=== PATIENT | male | born 1955 | race Caucasian/White ===

== ENCOUNTER 2021-07-28 14:43 | Emergency (ER) | payer SELFPAY ==
--- NOTE | ~2021-07-28 | XR_ITS ---
EXAMINATION: XR CHEST CLINICAL INFORMATION: Fall COMPARISON: None TECHNIQUE: Frontal view of the chest was obtained. FINDINGS: The cardiac and mediastinal contours are normal. The lungs are clear. There is no pleural effusion or pneumothorax. There is an old right fifth rib fracture. There is curvature of the thoracic spine to the right and degenerative change. XR/XR chest 1V IMPRESSION: No evidence for acute disease in the chest.
--- NOTE | ~2021-07-28 | CT_ITS ---
EXAMINATION: CT HEAD WITHOUT CONTRAST CLINICAL INFORMATION: Fall with head strike COMPARISON: None TECHNIQUE: Contiguous axial imaging was performed from the skull base to vertex without intravenous administration of contrast. This CT examination was performed using dose optimization techniques as appropriate, variously including the following: *Automated exposure control *Adjustment of mA and/or kV according to patient size (this includes techniques or standardized protocols for targeted exams where dose is matched to indication/reason for exam; i.e. extremities or head) *Use of iterative reconstruction technique DLP: 1144 mGy-cm FINDINGS: There is no evidence of acute intracranial hemorrhage or territorial infarction. No abnormal mass effect or midline shift is seen. Pena to white matter differentiation is well preserved. No extra-axial fluid collections are identified. The ventricles are normal in size. There is no abnormal attenuation within the brain parenchyma. There is a right parietal/occipital scalp hematoma present. The mastoid air cells are aerated. There is opacification of left ethmoid sinuses and left maxillary sinus without definite blowout fracture of the orbital floor. A fracture of the medial wall of the left maxillary sinus is not excluded. CT/CT head/brain wo con IMPRESSION: No acute intracranial pathology. Scalp hematoma. Opacification of left ethmoid and maxillary sinuses without blowout fracture of the orbital wall identified. Question possible medial wall left maxillary sinus fracture versus chronic sinus disease.
--- NOTE | ~2021-07-28 | CT_ITS ---
EXAMINATION: CT ABDOMEN AND PELVIS WITH CONTRAST CLINICAL INFORMATION: Status post 6 foot fall with abdominal pain, trauma COMPARISON: None TECHNIQUE: Multidetector volumetric images were obtained from the superior aspect of the liver through the pubic symphysis following administration 85 mL of Omnipaque 350 intravenous contrast. Sagittal and coronal reformatted images were obtained on the technologist's workstation. Oral contrast: No This CT examination was performed using dose optimization techniques as appropriate, variously including the following: *Automated exposure control *Adjustment of mA and/or kV according to patient size (this includes techniques or standardized protocols for targeted exams where dose is matched to indication/reason for exam; i.e. extremities or head) *Use of iterative reconstruction technique DLP: 864 mGy-cm FINDINGS: LUNG BASES: The visualized lung bases are unremarkable. LIVER, GALLBLADDER, AND BILIARY TREE: The liver is normal in size, shape, and attenuation. No focal hepatic lesion or biliary ductal dilatation is present. The gallbladder is unremarkable with no evidence of radiopaque gallstones, gallbladder wall thickening, or obvious pericholecystic inflammatory changes. PANCREAS: Unremarkable. SPLEEN: Unremarkable. ADRENAL GLANDS: Unremarkable. 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 There is mild right hydroureteronephrosis. Multiple simple right renal cysts are seen the largest in the right renal pelvis measuring 4.9 cm. There is an ectopically positioned left pelvic kidney with the partially duplicated collecting system. There is mild hydronephrosis of the upper and lower pulmonary disease. In addition are multiple simple renal cysts. BLADDER: Unremarkable. GASTROINTESTINAL TRACT: Stomach and small bowel are nondilated. Normal appendix. Diffuse colonic diverticulosis without evidence of colitis or diverticulitis. ABDOMINAL WALL: Fat-containing left inguinal hernia. Small fat-containing umbilical hernia. LYMPH NODES: No lymphadenopathy. VASCULAR: Normal caliber abdominal aorta. PELVIC VISCERA: Unremarkable. OSSEOUS STRUCTURES: Multilevel degenerative changes. CT/CT abdomen pelvis w con IMPRESSION: No acute traumatic abnormality in the abdomen or pelvis. 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 There is mild hydroureteronephrosis bilaterally. This is of uncertain etiology. There are multiple simple cysts in both kidneys, none of which require further imaging follow-up.
--- NOTE | ~2021-07-28 | CT_ITS ---
EXAMINATION: CT CERVICAL SPINE WITHOUT CONTRAST CLINICAL INFORMATION: Trauma COMPARISON: None TECHNIQUE: Axial images through the cervical spine without contrast. Sagittal and coronal reconstructions on the technologist workstation were performed. This CT examination was performed using dose optimization techniques as appropriate, variously including the following: *Automated exposure control *Adjustment of mA and/or kV according to patient size (this includes techniques or standardized protocols for targeted exams where dose is matched to indication/reason for exam; i.e. extremities or head) *Use of iterative reconstruction technique DLP: 813 mGy-cm FINDINGS: Exam is limited due to motion artifact. There is slight head tilt to the left and curvature of the proximal cervical spine to the right. Bone alignment is otherwise normal. There is multilevel degenerative spondylosis and degenerative disc disease from C3-C4 to C7-T1. There are degenerative changes at the C1 dens articulation. No fracture or dislocation is seen. Prevertebral soft tissues are normal. There is shotty cervical lymphadenopathy. There is an azygos lobe. CT/CT cervical spine wo con IMPRESSION: Limited exam due to motion. Multilevel degenerative changes. No fracture or dislocation seen. Fleischner guidelines were followed.
--- NOTE | ~2021-07-28 | CT_ITS ---
EXAMINATION: CT CHEST WITHOUT CONTRAST CLINICAL INFORMATION: Trauma COMPARISON: Previous chest x-ray from earlier the same day TECHNIQUE: Multidetector volumetric CT imaging of the chest was done. Axial MIP volume rendering provided. Sagittal and coronal reformatted images were obtained. This CT examination was performed using dose optimization techniques as appropriate, variously including the following: *Automated exposure control *Adjustment of mA and/or kV according to patient size (this includes techniques or standardized protocols for targeted exams where dose is matched to indication/reason for exam; i.e. extremities or head) *Use of iterative reconstruction technique DLP: 539 mGy-cm FINDINGS: LUNGS: There is mild right apical pleural thickening.. There is an azygos lobe. MEDIASTINUM: There is mild coronary artery calcification. The mediastinum is otherwise normal. PLEURA: There is no pleural effusion. There is no pneumothorax. There is pleural thickening at the right lung apex and posterior to the right upper lobe near the azygos fissure. This is low in attenuation suggestive of fat. AXILLA: There are no enlarged axillary lymph nodes. There is a 1.2 cm low-attenuation lesion just deep to the skin and the left chest wall lateral to the nipple. This is separate from breast tissue and probably represents a sebaceous cyst or epidermoid. UPPER ABDOMEN: Unremarkable. OSSEOUS STRUCTURES: There are old bilateral rib fractures. No acute fracture is seen. There are degenerative changes of the spine. There are degenerative changes of the shoulder joints. CT/CT chest wo con IMPRESSION: No acute findings in the chest. Fleischner guidelines were followed.
[2021-07-28 14:59] VITALS: BP 133/92; PULSE 111; RESP 24; TEMP 36.1; O2SAT 97; BMI 33.0
--- NOTE | 2021-07-28 15:12 | ECG_ITS ---
Test Reason : cp Blood Pressure : / mmHG Vent. Rate : 106 BPM Atrial Rate : 106 BPM P-R Int : 162 ms QRS Dur : 078 ms QT Int : 368 ms P-R-T Axes : 031 -25 050 degrees QTc Int : 488 ms Sinus tachycardia Inferior infarct , age undetermined Abnormal ECG No previous ECGs available Referred By: Generic ED Physician Electronically Signed By:Kai Reina
--- NOTE | 2021-07-28 15:39 | ED.FALL ---
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 Fall was unwitnessed but his friend heard the fall and ran into the room. He found the patient lying on his back, with a bleeding head wound, staring off into space and not responsive for about 3 or 4 minutes. He was ?breathing funny.? The friend denies any seizure activity. a few moments he was responsive and able to get up slowly. He reports right-sided back pain, right upper rib pain. He has no known medical problems but has not been to a doctor since 1978. He is not on any medications including anticoagulation. Patient reports he does not remember any events surrounding the fall. He does not recall being lightheaded or dizzy prior to the event. He does admit to drinking ?a little bit? of alcohol today. He states he drinks about half a pt of mary per day. On arrival to the ER patient is tachycardic and tachypneic. He is oriented x3. complaint: fall Onset (ago): minute(s) Fall from: standing Fall witnessed: no Place fall occurred: work Loss of consciousness: unsure Prolonged down time: no Location of injury: head and back Severity: moderate Severity scale (1-10): 6 Quality: aching Associated symptoms (after fall): headache Related Data Allergies Allergy/AdvReac Type Severity Reaction Status Date / Time amoxicillin Allergy Unknown Verified 07/28/21 15:04 Review of Systems Review of Systems: Constitutional: No Fever, No Chills ENT/Mouth: No sore throat, No Rhinorrhea, No Swallowing Difficulty Eyes: No Eye Pain, No Swelling, No Redness Cardiovascular: + Chest Pain, + SOB, No Orthopnea, No Edema Respiratory: No Cough, No Sputum, No Wheezing, No dyspnea Gastrointestinal: No Nausea, No Vomiting, No Diarrhea, No abdominal Pain, No Hematochezia, No Melena Genitourinary: No Dysuria, No Urinary Frequency, No Hematuria Musculoskeletal: + joint pain, + Myalgias Skin: No Skin Lesions, No rash Neuro: No Weakness, No Numbness, No Dizziness, + Headache Psych: No Anxiety/Panic, No Depression Heme/Lymph: No Bruising, No Lymphadenopathy Endocrine: No Polyuria, No Polydipsia REPLACED BY [facility] Past Medical History Medical History (Updated 07/28/21 @ 19:44 by RAYMOND Bailey) No known health problems Social History Social History Alcohol intake: current Alcohol intake frequency: a few times a week Alcohol type: hard liquor Patient Tobacco Use Status: Current everyday Tobacco user Use of substances other than those prescribed or required for medical reasons: No Advance Directives: No Advance Directives Information Provided: No Physical Exam Vital Signs: Vital Signs: Last Vital Signs Temp 98.2 F 07/28/21 17: Pulse 95 07/28/21 17:22 Resp 12 07/28/21 17:22 BP 121/84 07/28/21 17: Pulse Ox 97 07/28/21 17:22 BMI result Body Mass Index 33.0 Appearance: Alert, male with bleeding posterior head wound, Oriented X3. No acute distress. Appears older than stated age. Head: large palpable occipital hematoma without active bleeding. dried blood with matted hair, unable to visulize deep laceration. no palpable skull fracture. Eyes: Pupils equal, round and reactive to light. EOMI, no nystagmus ENT: Pharynx normal. No dental trauma, poor dentition Neck: Normal inspection. Neck supple. No mildine tenderness - c-collar placed. CVS: Tachycardic, regular rhythm, heart rate 100s. Pulses normal. Respiratory: Mild respiratory distress. Breath sounds coarse throughout without anywheezes or rhonchi Abdomen: Obese, Softly distened and RUQ tenderness. +BS x4. no flank ecchymosis Skin: Skin warm and dry. Normal skin color. Normal skin turgor. No rashes. Extremities: No lower extremity edema. Normal inspection and normal ROM x4 Neuro: Oriented X 3. No motor deficit. No sensory deficit. Nonfocal. Normal speech. Strength equal and symmetrical throughout. Course Course Course Narrative: 66-year-old male with a history of daily alcohol abuse, active smoker, with no known medical problems was not been to a doctor in 45 years who presents to the ER after he fell 6 ft onto a wooden scaffold. He was unresponsive for 3-4 minutes without any witnessed seizure activity. He has a head laceration with concern for possible pneumothorax. Will also need to rule out traumatic injuries in the abdomen. Will get escobar scans, type and screen, lab workup. May need to be transferred if traumatic injuries are significant. He is alert and oriented, placed on 100% non-rebreather empirically. Blood pressure stable 140 systolic. Reevaluation(s) Reevaluation #1: CT head, cervical spine and chest did not show any acute traumatic injuries. Wound on his scalp was irrigated and cleaned extensively and then harshil were used to close the irregular shaped wound. Compression help the back with the underlying hematoma and pressure was held, pressure dressing applied. Patient remains alert and oriented. He states he still has some mild pain in his right back. CT of the abdomen with contrast is still pending. Reevaluation #2: CT abd/pelvis without any acute traumatic injuries. He remains AAO x3. ETOH level 290s. Declining need for detox. He has no vomiting, lethargy or confusion. He has been observed for 5 hours in the ER and is stable for discharge home. His will care for him and monitor him closely at home. Return precautions were discussed. Procedures FAST Exam FAST Exam 1: Fluid in Splenorenal Junction: No Fluid around bladder, Transverse view: No Fluid around bladder, Sagittal view: No Fluid in Pericardial Sac: No Gross Wall Motion Abnormality: No Additional Comments: poor lung sliding on the right - performed with Dr. Edouard Laceration Laceration 1: Site: scalp Description: irregular Depth: simple, single layer Pre-repair: wound explored and irrigated extensively Skin layer closed with: other (7 Harshil) MDM - Fall Medical Records Attestation: I reviewed the patient's medical records. Lab Data Attestation: I reviewed the patient's lab results. Result diagrams: 07/28/21 15:50 07/28/21 15:50 Labs: Lab Results 07/28/21 07/28/21 07/28/21 Range/Units 15:50 15:50 15:50 WBC 10.7 (4.8-10.8) X10*3/uL RBC 4.84 (4.60-5.80) X10*6/uL Hgb 15.7 (14.0-18.0) g/dl Hct 44.4 (42.0-52.0) % MCV 91.7 (80.0-98.0) fL MCH 32.4 (27.0-33.0) pg MCHC 35.4 (31.0-36.0) g/dl RDW 13.0 (11.0-16.0) % Plt Count 208 (160-400) X10*3/uL MPV 8.6 L (9.4-12.4) fL Immature Gran % (Auto) 2.1 H (0.0-0.4) % Neut % (Auto) 77.1 H (45-73) % Lymph % (Auto) 13.0 L (20-40) % [place] % (Auto) 6.2 (2-11) % Eos % (Auto) 1.1 (0-4) % Baso % (Auto) 0.5 (0-2) % Lymph # (Auto) 1.4 (1.2-4.9) X10*3/uL [place] # (Auto) 0.7 (0.1-1.2) X10*3/uL Eos # (Auto) 0.1 (0.0-0.4) X10*3/uL Baso # (Auto) 0.1 (0.0-0.2) X10*3/uL Abs Immat Gran (auto) 0.22 H (0.00-0.03) X10*3/uL Absolute Neuts (auto) 8.3 (2.0-8.3) x10*3/uL Absolute Nucleated RBC 0.000 (0.0-0.012) X10*3/uL Nucleated RBC % (auto) 0.0 (0.0-0.2) /100WBC PT (9.9-13.0) SEC INR (0.9-1.1) APTT (24.1-38.0) SEC Sodium 135 (135-145) mmol/L Potassium 3.3 (3.3-5.1) mmol/L Chloride 99 (96-108) mmol/L Carbon Dioxide 26 (22-29) mmol/L Anion Gap 13 (12-20) BUN 9 (9-16) mg/dL Creatinine 0.90 (0.5-1.4) mg/dL Estim Creat Clear Calc 100.3 Estimated GFR > 60 Random Glucose 124 H (60-115) mg/dL Lactic Acid (0.5-2.0) mmol/L Lactic Acid F/U @ 2Hr (0.5-2.0) mmol/L Calcium 9.0 (8.4-10.2) mg/dL Magnesium 1.9 (1.6-2.6) mg/dL Total Bilirubin 0.5 (0.0-1.0) mg/dL Direct Bilirubin 0.2 (0.0-0.5) mg/dL AST 58 H (5-37) U/L ALT 33 (0-40) U/L Alkaline Phosphatase 76 (39-117) U/L Troponin I High Sens 4.4 (<3.5-35.0) ng/L Total Protein 6.9 (6.5-8.0) g/dL Albumin 4.0 (3.5-5.0) g/dL Ethyl Alcohol mg/dL COVID-19 ([facility]) (Negative) COVID-19 Clin Com Blood Type Antibody Screen 07/28/21 07/28/21 07/28/21 Range/Units 15:50 15:50 15:50 WBC (4.8-10.8) X10*3/uL RBC (4.60-5.80) X10*6/uL Hgb (14.0-18.0) g/dl Hct (42.0-52.0) % MCV (80.0-98.0) fL MCH (27.0-33.0) pg MCHC (31.0-36.0) g/dl RDW (11.0-16.0) % Plt Count (160-400) X10*3/uL MPV (9.4-12.4) fL Immature Gran % (Auto) (0.0-0.4) % Neut % (Auto) (45-73) % Lymph % (Auto) (20-40) % [place] % (Auto) (2-11) % Eos % (Auto) (0-4) % Baso % (Auto) (0-2) % Lymph # (Auto) (1.2-4.9) X10*3/uL [place] # (Auto) (0.1-1.2) X10*3/uL Eos # (Auto) (0.0-0.4) X10*3/uL Baso # (Auto) (0.0-0.2) X10*3/uL Abs Immat Gran (auto) (0.00-0.03) X10*3/uL Absolute Neuts (auto) (2.0-8.3) x10*3/uL Absolute Nucleated RBC (0.0-0.012) X10*3/uL Nucleated RBC % (auto) (0.0-0.2) /100WBC PT 11.0 (9.9-13.0) SEC INR 1.0 (0.9-1.1) APTT 32.7 (24.1-38.0) SEC Sodium (135-145) mmol/L Potassium (3.3-5.1) mmol/L Chloride (96-108) mmol/L Carbon Dioxide (22-29) mmol/L Anion Gap (12-20) BUN (9-16) mg/dL Creatinine (0.5-1.4) mg/dL Estim Creat Clear Calc Estimated GFR Random Glucose (60-115) mg/dL Lactic Acid 3.1 H* (0.5-2.0) mmol/L Lactic Acid F/U @ 2Hr (0.5-2.0) mmol/L Calcium (8.4-10.2) mg/dL Magnesium (1.6-2.6) mg/dL Total Bilirubin (0.0-1.0) mg/dL Direct Bilirubin (0.0-0.5) mg/dL AST (5-37) U/L ALT (0-40) U/L Alkaline Phosphatase (39-117) U/L Troponin I High Sens (<3.5-35.0) ng/L Total Protein (6.5-8.0) g/dL Albumin (3.5-5.0) g/dL Ethyl Alcohol mg/dL COVID-19 ([facility]) Negative (Negative) COVID-19 Clin Com See Note Blood Type Antibody Screen 07/28/21 07/28/21 07/28/21 Range/Units 15:50 18:32 18:32 WBC (4.8-10.8) X10*3/uL RBC (4.60-5.80) X10*6/uL Hgb (14.0-18.0) g/dl Hct (42.0-52.0) % MCV (80.0-98.0) fL MCH (27.0-33.0) pg MCHC (31.0-36.0) g/dl RDW (11.0-16.0) % Plt Count (160-400) X10*3/uL MPV (9.4-12.4) fL Immature Gran % (Auto) (0.0-0.4) % Neut % (Auto) (45-73) % Lymph % (Auto) (20-40) % [place] % (Auto) (2-11) % Eos % (Auto) (0-4) % Baso % (Auto) (0-2) % Lymph # (Auto) (1.2-4.9) X10*3/uL [place] # (Auto) (0.1-1.2) X10*3/uL Eos # (Auto) (0.0-0.4) X10*3/uL Baso # (Auto) (0.0-0.2) X10*3/uL Abs Immat Gran (auto) (0.00-0.03) X10*3/uL Absolute Neuts (auto) (2.0-8.3) x10*3/uL Absolute Nucleated RBC (0.0-0.012) X10*3/uL Nucleated RBC % (auto) (0.0-0.2) /100WBC PT (9.9-13.0) SEC INR (0.9-1.1) APTT (24.1-38.0) SEC Sodium (135-145) mmol/L Potassium (3.3-5.1) mmol/L Chloride (96-108) mmol/L Carbon Dioxide (22-29) mmol/L Anion Gap (12-20) BUN (9-16) mg/dL Creatinine (0.5-1.4) mg/dL Estim Creat Clear Calc Estimated GFR Random Glucose (60-115) mg/dL Lactic Acid (0.5-2.0) mmol/L Lactic Acid F/U @ 2Hr 2.3 H* (0.5-2.0) mmol/L Calcium (8.4-10.2) mg/dL Magnesium (1.6-2.6) mg/dL Total Bilirubin (0.0-1.0) mg/dL Direct Bilirubin (0.0-0.5) mg/dL AST (5-37) U/L ALT (0-40) U/L Alkaline Phosphatase (39-117) U/L Troponin I High Sens (<3.5-35.0) ng/L Total Protein (6.5-8.0) g/dL Albumin (3.5-5.0) g/dL Ethyl Alcohol 294 mg/dL COVID-19 ([facility]) (Negative) COVID-19 Clin Com Blood Type A Positive Antibody Screen NEGATIVE ECG Data Attestation: I personally reviewed and interpreted this ECG as follows: ECG interpretation date: 07/28/21 Interpretation: Sinus tachycardia, heart rate 106 beats per minute, QTC slightly warm 180 AMS, normal TN interval, no ST segment elevations or depressions. Critical Care Time Critical Care Time Critical Care Time: Yes Total Critical Care Time: 46 Attestation: I have personally provided critical care time exclusive of time spent on separately billable procedures. Time includes review of lab data, radiology results, discussion with consultants, and monitoring for potential decompensation. Intervention performed as documented. Discharge Plan Discharge Clinical Impression: Laceration of head, Accidental fall from scaffolding, Alcohol intoxication, Head injury Patient Disposition: Home, Self-Care Instructions: Head Injury (ED), Abuse of Alcohol (DC), Head Laceration (ED) Additional Instructions: Your CT scans did not show traumatic injuries. 7 harshil were used to close your head wound. These will need to be removed in 10 days. See you doctor for this or come back to the ER and we will remove them. Do not get wet for 24 hours, after that you can briefly wash with soap and water then pat dry. Use bacitracin 2x per day. Keep wound clean. Take Motrin and/or Tylenol as needed for aches and pains. Recommend detox from alcohol. If you develop signs of infection including increased pain, swelling, redness or drainage of pus come back to the ER for further evaluation.
[2021-07-28 15:57] LABS: MANUAL DIFF FLAG NO
[2021-07-28 15:58] LABS: Basophils Absolute Auto 0.1 X10*3/uL (0.0-0.2); Basophils Percent Auto 0.5 % (0-2); Eosinophils Absolute Auto 0.1 X10*3/uL (0.0-0.4); Eosinophils Percent Auto 1.1 % (0-4); Hematocrit 44.4 % (42.0-52.0); Hemoglobin 15.7 g/dl (14.0-18.0); Imm Gran Abs Auto 0.22 X10*3/uL (0.00-0.03); Imm Gran Pct Auto 2.1 % (0.0-0.4); Lymphocytes Absolute Auto 1.4 X10*3/uL (1.2-4.9); Mean Corpuscular HGB Conc 35.4 g/dl (31.0-36.0); Mean Corpuscular Hemoglobin 32.4 pg (27.0-33.0); Mean Corpuscular Volume 91.7 fL (80.0-98.0); Mean Platelet Volume 8.6 fL (9.4-12.4); Monocytes Absolute Auto 0.7 X10*3/uL (0.1-1.2); Monocytes Percent Auto 6.2 % (2-11); Neutrophils Absolute Auto 8.3 x10*3/uL (2.0-8.3); Neutrophils Percent Auto 77.1 % (45-73); Platelet Count 208 X10*3/uL (160-400); Red Blood Count 4.84 X10*6/uL (4.60-5.80); White Blood Count 10.7 X10*3/uL (4.8-10.8)
[2021-07-28 16:07] LABS: Partial Thromboplastin Time 32.7 SEC (24.1-38.0)
[2021-07-28 16:12] LABS: Ethanol 294 mg/dL
[2021-07-28 16:13] LABS: Lactic Acid 3.1 mmol/L (0.5-2.0)
[2021-07-28 16:14] LABS: Alanine Aminotransferase 33 U/L (0-40); Alkaline Phosphatase 76 U/L (39-117); Anion Gap 13 (12-20); Aspartate Amino Transferase 58 U/L (5-37); Bilirubin Direct 0.2 mg/dL (0.0-0.5); Bilirubin Total 0.5 mg/dL (0.0-1.0); Blood Urea Nitrogen 9 mg/dL (9-16); Carbon Dioxide 26 mmol/L (22-29); Chloride 99 mmol/L (96-108); Creatinine Clr Calc Pharmacy 100.3; Estimated Glomerular Filt Rate > 60; Glucose Random 124 mg/dL (60-115); Magnesium 1.9 mg/dL (1.6-2.6); Potassium 3.3 mmol/L (3.3-5.1); Sodium 135 mmol/L (135-145); Total Protein 6.9 g/dL (6.5-8.0)
[2021-07-28 16:18] LABS: Troponin-I High Sensitivity 4.4 ng/L (<3.5-35.0)
[2021-07-28 16:20] LABS: COVID-19 Test Negative (Negative); IDNOW Serial# 16C4AD1C
[2021-07-28 16:40] VITALS: BP 110/84; PULSE 97; RESP 18; O2SAT 97
[2021-07-28] MEDS: 0.9 % Sodium Chloride 1,000 ML 999 ML IVCONT (17:17)
[2021-07-28 17:22] VITALS: BP 121/84; PULSE 95; RESP 12; TEMP 36.8; O2SAT 97
[2021-07-28] MEDS: iohexoL 350 MG/ML 100 ML INFUS..BTL IV (17:27)
[2021-07-28 17:54] LABS: Reflex Lactate? Lactic Acid Added
[2021-07-28] MEDS: Diphth,Pertus(ACell),Tet Adult 0.5 ML SYRINGE IM (18:45)
[2021-07-28 18:51] LABS: ~Lactic Acid-LAB USE ONLY 2.3 mmol/L (0.5-2.0)
[2021-07-28 19:50] VITALS: BP 141/85; PULSE 111; RESP 20; O2SAT 97
[2021-07-28 20:35] LABS: Reflex Lactate? 2 Y
== END 2021-07-28 20:10 | disposition home or self-care (01) ==
PROVIDERS: Physician Assistant; Emergency Provider Emergency Medicine
DX: S01.01XA Laceration without foreign body of scalp, initial encounter (principal); S30.810A Abrasion of lower back and pelvis, initial encounter; M54.50 Low back pain, unspecified; G44.309 Post-traumatic headache, unspecified, not intractable; F10.129 Alcohol abuse with intoxication, unspecified; Y90.8 Blood alcohol level of 240 mg/100 ml or more; W17.89XA Other fall from one level to another, initial encounter; Y93.9 Activity, unspecified; Y92.9 Unspecified place or not applicable; Y99.0 Civilian activity done for income or pay; F17.210 Nicotine dependence, cigarettes, uncomplicated; Z20.822 Contact with and (suspected) exposure to COVID-19; Z71.6 Tobacco abuse counseling
CPT/HCPCS: 12001; 36415; 70450; 71045; 71250; 72125; 74177; 80048; 80076; 82077; 83605; 83735; 84484; 85025; 85610; 85730; 86850; 86900; 86901; 87635; 90471; 90715; 93005; 96360; 99284; 99291; Q9967

== ENCOUNTER 2021-08-08 15:18 | Emergency (ER) | payer SELFPAY ==
--- NOTE | ~2021-08-08 | XR_ITS ---
EXAMINATION: XR SKULL CLINICAL INFORMATION: Rule out stable in bowel COMPARISON: None TECHNIQUE: 2 views of the skull were obtained. FINDINGS: There is a staple seen on the lateral view projecting over the parietal occipital region. On the PA view this is seen in the soft tissues adjacent to the right side of the skull. No skull fracture is seen. XR/XR skull <4V IMPRESSION: Staple in the soft tissues overlying the right parietal occipital bone.
--- NOTE | 2021-08-08 17:12 | ED_ITS ---
HPI - General Adult General Stated complaint: staple removal Time Seen by Provider: 08/08/21 15:52 Source: patient Mode of arrival: ambulatory Limitations: no limitations History of Present Illness HPI narrative: Comes emergency room for staple removal from the scalp. Eleven days ago, patient has fall, stephanie were placed. Patient reports that he feels itching around his head, occasionally sees some bloody oozing, otherwise no new complaints. Related Data Allergies Allergy/AdvReac Type Severity Reaction Status Date / Time amoxicillin Allergy Unknown Verified 07/28/21 15:04 Review of Systems Review of Systems: Constitutional : No Weight loss, No Fever, No Chills, No Night Sweats, No Fatigue, No Malaise ENT/Mouth : No Hearing loss, No Ear Pain, No Nasal Congestion, No Sinus Pain, No Hoarseness, No sore throat, No Rhinorrhea, No Swallowing Difficulty Eyes: No Eye Pain, No Swelling, No Redness, No Foreign Body, No Discharge, No Vision Changes Cardiovascular : No Chest Pain, No SOB, No Dyspnea on Exertion, No Orthopnea, No Edema, No Palpitations Respiratory : No Cough, No Sputum, No Wheezing, No Smoke Exposure, No Dyspnea Gastrointestinal : No Nausea, No Vomiting, No Diarrhea, No Constipation, No abdominal Pain, No Hematochezia, No Melena Genitourinary : no irregular bleeding, No Dysuria, No Urinary Frequency, No Hematuria, No Urinary Incontinence, No Urgency, No Flank Pain, No Urinary Flow Changes, No Hesitancy Musculoskeletal : No joint pain, No Myalgias, No Joint Swelling Skin : Scalp healing, has stitches that are itchy Neuro : No Weakness, No Numbness, No Paresthesias, No Loss of Consciousness, No Dizziness, No Headache Psych : No Anxiety/Panic, No Depression, No SI/HI/AH/VH, No Social Issues, Heme/Lymph: No Bruising, No Bleeding,No Lymphadenopathy Endocrine : No Polyuria, No Polydipsia, No Temperature Intolerance [facility] Past Medical History Medical History No known health problems Social History Social History Alcohol intake: current Alcohol intake frequency: a few times a week Alcohol type: hard liquor Patient Tobacco Use Status: Current everyday Tobacco user Advance Directives: No Advance Directives Information Provided: No Physical Exam ED Const Other: Appearance: Alert. Oriented X3. No acute distress. Eyes: Pupils equal, round and reactive to light. ENT: Pharynx normal. Neck: Normal inspection. Neck supple. No lymph nodes noted. No crepitus CVS: Normal heart rate and rhythm. Pulses normal. Normal S1 and S2 Respiratory: No respiratory distress. Breath sounds normal. No Wheezing. No rales Abdomen: Soft and nontender. No rigidity. No distention. Skin: Skin warm and dry. Patient has stephanie in the scalp, a large collection of dry blood over the stephanie. Extremities: No lower extremity edema. No Lacerations. No Rash Neuro: Oriented X 3. No motor deficit. No sensory deficit. Moving all extremities. No slurred speech. CN 2 through 12 grossly intact Psych: calm, cooperative, normal affect Course Course Course Narrative: Sixty stephanie were removed. However, per patient's previous notes, there were 7 stephanie. An x-ray was done, which revealed a remaining stable in the scalp. I discussed with the patient that I needed to cut some of his hair and removed the dry blood. Patient agreed. Seventh staple was found and removed successfully Discharge Plan Discharge Clinical Impression: Removal of staple Patient Disposition: Home, Self-Care Additional Instructions: Please follow-up with your primary care physician tomorrow. If you have any worsening or new symptoms, please return to the emergency room or call 911
[2021-08-08 17:39] VITALS: BMI 27.9
[2021-08-08 17:44] VITALS: BP 119/78; PULSE 83; RESP 16; TEMP 36.7; O2SAT 98
== END 2021-08-08 17:52 | disposition home or self-care (01) ==
PROVIDERS: Emergency Provider Emergency Medicine
DX: Z48.02 Encounter for removal of sutures (principal); S01.01XD Laceration without foreign body of scalp, subsequent encounter; X58.XXXD Exposure to other specified factors, subsequent encounter
CPT/HCPCS: 70250; 99283

== ENCOUNTER 2023-11-19 08:00 | Day surgery (SDC) | payer OTHER, SELFPAY ==
--- NOTE | 2023-11-18 11:49 | HO.ANESPROP2 ---
Documented by User: Marianna Patel NP 11/18/23 11:50 HPI - Anesthesia Eval Consult details Narrative: 68yo M for Colonoscopy [facility] Past Medical History Medical History Hearing loss Knee pain No known health problems Social History Social History Alcohol intake: current Alcohol intake frequency: a few times a week Alcohol type: hard liquor Patient Tobacco Use Status: Former Tobacco user Are you DNR?: No Advance Directives: No Advance Directives Information Provided: Yes Nutrition Risks: No Nutritional Risk Meds Allergies Allergy/AdvReac Type Severity Reaction Status Date / Time amoxicillin Allergy Unknown Verified 07/28/21 15:04 Home Medications ?Medication ?Instructions ?Recorded ?Confirmed ?Last Taken ?Type Vitamin D3 11/18/23 11/18/23 Unknown History ibuprofen 11/18/23 11/18/23 Unknown History vitamin B complex-vit B12 11/18/23 11/18/23 Unknown History Assessment and Plan Assessment Anesthesia Assessment: Chart Reviewed Documented by User: Sayda Patterson MD 11/19/23 09:25 [facility] Active Problems Active Problems: ETOH abuse HTN Past Medical History Medical History Hearing loss Knee pain No known health problems Surgical History History of Problems with Anesthesia: No Social History Social History Alcohol intake: current Alcohol intake frequency: a few times a week Alcohol type: hard liquor Patient Tobacco Use Status: Former Tobacco user Are you DNR?: No Advance Directives: No Advance Directives Information Provided: Yes Nutrition Risks: No Nutritional Risk Meds Allergies Allergy/AdvReac Type Severity Reaction Status Date / Time amoxicillin Allergy Unknown Verified 07/28/21 15:04 Home Medications ?Medication ?Instructions ?Recorded ?Confirmed ?Last Taken ?Type Vitamin D3 11/18/23 11/18/23 Unknown History ibuprofen 11/18/23 11/18/23 Unknown History vitamin B complex-vit B12 11/18/23 11/18/23 Unknown History Exam Airway Mallampati Class: III TM Dist: >3cm Neck ROM: Full Loose/Missing/Broken Teeth: Yes, Upper and Lower (B = Broken; M = Missing; L = Loose; C = Cap) Heart: RRR Lungs: CTA Assessment and Plan Assessment Anesthesia Assessment: Anesthesia Plan Discussed Final Anesthetic Review History of Problems with Anesthesia: No NPO: Yes ASA Class: III Final Preanesthetic Review: Meds/Allgs Chart Reviewed, Consent Obtained/Reviewed and Anes Risks/Benef Reviewed Patient Risk: Intermediate Procedure Risk: Low Anesthetic Plan Anesthetic Plan: MAC: Disposition: Standard PACU
[2023-11-19] VITALS (7 sets, daily range): BP systolic 113–180; BP diastolic 68–107; PULSE 84–110; RESP 17–20; TEMP 36.3–36.9; O2SAT 94–100; BMI 31.5
[2023-11-19] MEDS: Albuterol Sulfate (0.083%) 2.5 MG/3 ML VIAL.NEB INHALE (08:26)
--- NOTE | 2023-11-19 08:26 | PC.NURSE ---
PT RECIEVING RESP TX FOR WHEEZING AND DIMINISHED LS AWARE CAREPLAN A/0X3 PHILLIPS DENIES C/P B/P NUMBER 2 199/113 ANESTHESIA AWARE WILL BE GIVEN LABETOLOL
[2023-11-19] MEDS: Lactated Ringers 1,000 ML 100 ML IVCONT (08:32)
--- NOTE | 2023-11-19 08:33 | PC.NURSE ---
VERSED GIVEN TO PATIENT BY ANESTHESIA AWARE CAREPLAN
--- NOTE | 2023-11-19 09:06 | MHC.SHP ---
Pre-Procedural Eval Section A - 24 Hr Update-Section A only Date of Service: 11/19/23 Section B - Complete if H&P > 30 days Chief Complaint: screening Details of Present Illness: see H&P no changes Relevant Family History (Specify if Yes): No Relevant Social History: None Present Medications: see Short Stay Collaborative assessment Medical History: No relevant PMH History of Previous Operations: No relevant previous surgery Allergies: Allergies Allergy/AdvReac Type Severity Reaction Status Date / Time amoxicillin Allergy Unknown Verified 07/28/21 15:04 Review of Systems Sugical H&P ROS: Negative: Constitution, Cardiovascular, Respiratory, Neurological, Psychiatric, Hem-Onc, Allergic/Immunologic, Gastrointestinal, Genitourinary, Musculoskeletal, Integumentary, Endocrine and Eyes/Ears/Nose/Throat Exam Surgical H&P Exam: Normal: HEENT, Normal: Heart, Normal: Lungs, Normal: Extremities, Normal: Abdomen, Normal: Skin and Normal: Neurological Plan Diagnosis/Plan: Unchanged I have reviewed the history and physical and performed a pertinent physical examination on my patient. No changes have occurred unless specified. Time Spent With Patient Time: Total time managing care of this patient today ____ minutes.
--- NOTE | 2023-11-19 10:33 | OP_ITS ---
DATE OF SERVICE: 11/19/2023 SURGEON: Syed Milligan MD INDICATIONS: Colon cancer screening. PREOPERATIVE DIAGNOSIS: POSTOPERATIVE DIAGNOSIS: PROCEDURE PERFORMED: Colonoscopy to the cecum with snare polypectomy and cauterization of colon polyps. ESTIMATED BLOOD LOSS: COMPLICATIONS: ANESTHESIA: Monitored anesthesia care. ASSISTANTS: SPECIMENS: DESCRIPTION OF PROCEDURE: A history and physical was performed. The risks and benefits of the procedure were explained to the patient and informed consent was obtained. The patient was placed in the left lateral decubitus position. A digital rectal exam was performed and was found to be normal. The Olympus pediatric video colonoscope was introduced into the rectum and advanced to the cecum. The cecum was identified by transillumination, palpation, and identification of ileocecal valve. Examination was performed and the scope was removed. He tolerated the procedure well and was returned to recovery area in stable condition. FINDINGS: The terminal ileum was not examined. The visualized colonic mucosa was normal. The quality of the prep was good. Multiple colonic polyps were identified and removed using a combination of hot snare cautery, cold snare cautery, and cauterization of colon polyps. Two large polyps were identified and removed, 1 in the rectum and 1 at 45 cm. A hemostatic clip was placed as was some oozing post procedure and the base of the polyp was cauterized. There was moderate sigmoid diverticulosis. Retroflexed examination showed large internal hemorrhoids. IMPRESSION: Colon polyps. RECOMMENDATION: Follow up the biopsy results. MD BERYL Owens/SHAW / [phone]
== END 2023-11-19 10:57 | disposition home or self-care (01) ==
PROVIDERS: Visit Provider Internal Medicine Gastroenterology
PROC: 0DJD8ZZ Inspection of Lower Intestinal Tract, Via Natural or Artificial Opening Endoscopic (ICD-10-PCS; CPT 45378; principal; 2023-11-19 09:10)
DX: Z12.11 Encounter for screening for malignant neoplasm of colon (principal); D12.5 Benign neoplasm of sigmoid colon; D12.8 Benign neoplasm of rectum; K57.30 Diverticulosis of large intestine without perforation or abscess without bleeding; K64.8 Other hemorrhoids; Z79.899 Other long term (current) drug therapy; Z88.1 Allergy status to other antibiotic agents; Z87.891 Personal history of nicotine dependence
CPT/HCPCS: 45385; 45384; 88305; 94640; J1920; J2250; J2704

== ENCOUNTER 2025-01-15 09:44 | Day surgery (SDC) | payer OTHER, SELFPAY ==
--- OUTSIDE RECORDS SUMMARY | 2023-11-19 05:10 | XMS_ITS ---
Author Organization [facility] Address [address] [place] [phone] Care Team Providers Care Guard Range Name Role Phone Jose Resendiz, Lindsay Primary Care Provider Un available Syed Milligan Jr [phone] REASON FOR VISIT screening Encounters Encounter Location Date Provider Diagnosis [facility] [place] [address] [place] [phone] 11/19/2023 Syed Milligan Jr Encounter for screening colonoscopy Z12.11 and Colon polyps K63.5 Assessments Encounter Date Diagnosis (ICD Code) Assessment Notes Treatment Notes Treatment Clinical Notes Section Notes 11/19/2023 Encounter for screening colonoscopy (ICD-10 - Z12.11) 11/19/2023 Colon polyps (ICD-10 - K63.5) Plan Of Treatment Next Appt Details Provider Name:Syed herrmann Jr, 01/15/2025 10:50:00 AM, [address] [place] [address], [phone], Progress Notes * IRIS SAEED ADOB:[birth year] (69 yo M)Acc No.[id number]:11/19/2023 COLON WITH MAC Patient: Sidney MADDOX AUDIE Provider: Jonathon Milligan MD :1955 A ge:68 Y S ex:Male Date:11/19/2023 [address] [place], [id number] Pcp:Lindsay Garcia M.D. Subjective: * Chief Complaints: * 1 . Screening. * Medical History: Objective: * Vitals: Assessment: * Assessment: 1. E ncounter for screening colonoscopy - Z12.11 (Primary) 2 . C olon polyps - K63.5 Plan: * Treatment: * Procedure Codes: 4 5385 LESION REMOVAL COLONOSCOPY, 92026 LESION REMOVE COLONOSCOPY, Modifiers: 59 * * The named appointment provid er may or may not be the originator of this progress note, and it is not deemed complete until electronically signed by the appointment provider. Sign off status: Pending * Provider: Jonathon Milligan MD Date: 0 11/19/2023 Generated for Pedro lundberg/Fran/Britanysmitting on: 0 12/15/2024 06:31 AM EDT
--- OUTSIDE RECORDS SUMMARY | 2024-12-15 06:32 | XMS_ITS | Clinical Summary ---
Author Organization [facility] Address [address] [place] [phone] Phone Care Team Providers Care Community Health Nurse Staff Name Role Phone Kash Garcia MD Primary Care Provider [phone] Allergies Active Allergy Reactions Criticality Noted Date Comments Amoxicillin Fainting 12/10/2024 Medications pyridoxine (VITAMIN B-6) 25 mg tablet Take 1 tablet (25 mg total) by mouth. 10/25/2024 Active losartan (COZAAR) 25 mg tablet Take 1 tablet (25 mg total) by mouth. 08/04/2024 Active aspirin 81 mg EC tablet Take 1 tablet (81 mg total) by mouth. 10/25/2024 Active albuterol HFA (PROAIR HFA ; PROVENTIL HFA ; VENTOLIN HFA) 90 mcg/actuation inhaler Inhale by mouth. 07/10/2024 Active meloxicam (MOBIC) 7.5 mg tablet Take 1 tablet (7.5 mg total) by mouth 1 (one) time each day. 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 Alcoholic liver disease, unspecified ([facility] V2 4) 12/04/2024 Arteriosclerosis of coronary artery 12/04/2024 Bilateral hearing loss 12/04/2024 Cobalamin deficiency 12/04/2024 Combined forms of age-related cataract, bilatera l 12/04/2024 Elevated prostate specific antigen (PSA) 025 Steatosis of liver 12/04/2024 Overview (12/04/2024): Jul 10, 2024 Entered By: PEÑA TORRES Comment: with elevated liver enzymes Aug 16, 2024 Entered By: PEÑA TORRES Comment: noted on CT 05/22/24 Hypertension 12/04/2024 Primary malignant neoplasm o f prostate ([facility] V24, [facility] V28) 12/04/2024 Overview (12/04/2024): Jul 10, 2024 Entered By: PEÑA TORRES Comment: 06/03/23 PSA 15.27 Aug 16, 2024 Entered By: PEÑA TORRES Comment: 07/10/24 PET is pending per urology Pulmonary emphysema ([facility] V24, [facility] V28) 0 12/04/2024 Sensorineural hearing loss, bilateral 12/04/2024 Snoring 12/04/2024 Vitamin D deficiency 12/04/2024 Other idiopathic peripheral autonomic neuropathy 12/04/2024 Osteoarthritis of right knee 12/04/2024 Obstructive sleep apnea syndrome in adult 2024 Overview (12/04/2024): Aug 16, 2024 Entered By: PEÑA TORRES Comment: sleep study 05/31/24 Obstructive sleep apnea (adult) (pediatric) 11/24 Sleep apnea, unspecified 12/04/2024 Encounters Date Type Department Care Team Description 12/10/2024 9:51 AM EDT - 12/10/2024 11:59 PM EDT Hospital Encounter [facility] Radiation Oncology [address] [place] [phone] Diane Su MD Prostate CA ([facility] [place], [facility] V28) (Primary Dx) Discharge Disposition: Home or Self Care 11/25/2024 Telephone [facility] Radiation Oncology [address] [place] [phone] Bernie Campo RN 11/18/2024 [facility] Radiation Oncology [address] [place] [phone] Monica Cardona MA 11/03/2024 [facility] Radiation Oncology [address] [place] [phone] Monica Cardona MA from Last 3 Months Medical History Medical History Date Comments Hypertension Prostate cancer ([facility] [place]24, [facility] V28) Social History Tobacco Use Types Packs/Day Years Used Date Smoking Tobacco: Former Cigarettes Smokeless Tobacco: Never Tobacco Cessation:Counseling Given: Not Answered Alcohol Use Standard Drinks/Week Comments Not Currently 0 (1 standard drink = 0.6 oz pur e alcohol) Quit in Jun 2024. Sex and Gender Information Value Date Recorded Sex Assigned at Not on file Legal Sex Male 3:42 PM EDT Gender Identity Not on file Sexual Orientation Not on file Occupation Industry Job Start Date Job End Date Retired Not on file Not on file Not on file Obstetrics History Last Filed Vital Signs Vital Sign Reading Time Taken Comments Blood Pressure 122/84 12/10/2024 9:59 AM EDT Pulse 70 12/10/2024 9:59 AM EDT Temperature 36 C (96.8 F) 12/10/2024 9:59 AM EDT Respiratory Rate 18 12/10/2024 9:59 AM EDT Oxygen Saturation 97% 12/10/2024 9:59 AM EDT Inhaled Oxygen Concentration - - Weight 89.3 kg (196 lb 12.8 oz) 12/10/2024 9:59 AM EDT Height 177.8 cm (5' 10 ) 12/10/2024 9:59 AM EDT Body Mass Index 28.24 12/10/2024 9:59 AM EDT Plan of Treatment Health Maintenance Due Date Last Done Comments DTaP,Tdap,and Td Vaccines (1 - Tdap) 1976 Hepatitis A Vaccines (1 of 2 - Risk 2-dose series) 1976 Pneumococcal Vaccine: 50+ Years (1 of 2 - PCV) 1976 Hepatitis B Vaccines (1 of 3 - Risk 3-dose series) 2017 RSV Immunization Adult Patients (1 - Risk 60-74 years 1-dose series) 2017 Abdominal Aortic Aneurysm (AAA) Screen 03/05/2024 Cholesterol Screening (Lipid Panel) 03/05/2024 Colorectal Cancer Screening: Colonoscopy 03/05/2024 Falls Risk Assessment 03/05/2024 Hepatitis C Screening 03/05/2024 Social Influencers of Health Screening 03/05/2024 Depression Screening 05/27/2024 COVID-19 Vaccine (2 - Modern a risk series) 08/07/2024 07/10/2024 Zoster Vaccines (2 of 2) 09/04/2024 07/10/2024 Hypertension/CHF/CAD Annual BMP Blood Test 10/08/2024 Influenza Vaccine (#1) 2025 4, 06/21/2023 HIB Vaccines Aged Out No longer eligi ble based on patient's age to complete this topic HPV Vaccines Aged Out No longer eligi ble based on patient's age to complete this topic IPV Vaccines Aged Out No longer eligi ble based on patient's age to complete this topic MMR Vaccines Aged Out No longer eligi ble based on patient's age to complete this topic Meningococcal ACWY Vaccine Aged Out N o longer eligible based on patient's age to complete this topic Meningococcal B Vaccine Aged Out No l onger eligible based on patient's age to complete this topic RSV Immunization Patients Under 20 months Aged Out No longer eligible b ased on patient's age to complete this topic Varicella Vaccines Aged Out No longer eligible based on patient's age to complete this topic Insurance [facility] Care Teams Community Health Nurse Staff Relationship Specialty Start Date End Date Kash Garcia MD [address] [place] [address] PCP - General Internal Medicine 11/18/24
[2025-01-13 15:36] VITALS: BMI 28.1
--- NOTE | 2025-01-14 09:47 | P.CONAN_ITS ---
HPI - Anesthesia Eval Consult details Narrative: 69yo M for Colonoscopy [facility] Past Medical History Medical History (Updated 12/11/24 @ 13:[address] RN) Colon polyps Hearing loss Knee pain Surgical History Surgical History (Updated 12/11/24 @ 13:[address] RN) H/O colonoscopy History of Problems with Anesthesia: No Social History Social History (Updated 01/13/25 @ 15:36 by Jeanne Young RN) Alcohol intake: current Alcohol intake frequency: a few times a week Alcohol type: hard liquor Patient Tobacco Use Status: Former Tobacco user Tobacco use type: Cigarette Current occupational status: employed Current occupation: electrician marine Meds Allergies Allergy/AdvReac Type Severity Reaction Status Date / Time amoxicillin Allergy Unknown Verified 07/28/21 15:04 Home Medications ?Medication ?Instructions ?Recorded ?Confirmed ?Last Taken ?Type cyanocobalamin (vitamin B-12) 100 100 mcg PO DAILY 01/13/25 Unknown History mcg tablet (Vitamin B-12) ibuprofen 200 mg tablet 200 mg PO Q8H PRN Pain 12/1101/13/25 Unknown History losartan 50 mg-hydrochlorothiazide 1 tab PO DAILY 11/2401/13/25 Unknown History 12.5 mg tablet cholecalciferol (vitamin D3) 50 50 mcg PO DAILY 01/13/25 Unknown History mcg (2,000 unit) capsule (Vitamin D3) Exam Height,Weight and Vital Signs: Height 5 ft 10.5 in Weight 90.265 kg Assessment and Plan Assessment Anesthesia Assessment: Chart Reviewed Final Anesthetic Review History of Problems with Anesthesia: No
--- NOTE | 2025-01-14 09:47 | HO.ANESPROP2 ---
HPI - Anesthesia Eval Consult details Narrative: 69yo M for Colonoscopy [facility] Past Medical History Medical History Colon polyps Hearing loss Knee pain Surgical History Surgical History (Updated 01/15/25 @ 10:08 by Radha Lucas RN) History of prostate surgery H/O colonoscopy History of Problems with Anesthesia: No Social History Social History Are you a primary career technical counselor to a significant other at home: No Do you presently have visiting nurse or other home services: No Alcohol intake: current Alcohol intake frequency: a few times a week Alcohol type: hard liquor Patient Tobacco Use Status: Former Tobacco user Tobacco use type: Cigarette Substance Use Frequency: Daily Have you been hit, kicked, punched, or otherwise hurt by someone within the past year? If so, by whom?: No Are you DNR?: No Advance Directives: No Advance Directives Information Provided: Yes Poor oral hygiene: Yes Current occupational status: employed Current occupation: [employer] Allergies Allergy/AdvReac Type Severity Reaction Status Date / Time amoxicillin Allergy Unknown Verified 01/15/25 10:08 Home Medications ?Medication ?Instructions ?Recorded ?Confirmed ?Last Taken ?Type cyanocobalamin (vitamin B-12) 100 100 mcg PO DAILY 12/11/24 01/13/25 Unknown History mcg tablet (Vitamin B-12) ibuprofen 200 mg tablet 200 mg PO Q8H PRN Pain 12/11/24 01/13/25 01/08/25 History losartan 50 mg-hydrochlorothiazide 1 tab PO DAILY 12/11/24 01/13/25 Unknown History 12.5 mg tablet cholecalciferol (vitamin D3) 50 50 mcg PO DAILY 01/13/25 01/13/25 Unknown History mcg (2,000 unit) capsule (Vitamin D3) Exam Height,Weight and Vital Signs: Height 5 ft 10.5 in Weight 90.265 kg Assessment and Plan Assessment Anesthesia Assessment: Chart Reviewed Final Anesthetic Review History of Problems with Anesthesia: No
--- NOTE | 2025-01-15 09:55 | MHC.SHP ---
Pre-Procedural Eval Section A - 24 Hr Update-Section A only Date of Service: 01/15/25 The patient is an INPATIENT: No Changes since office visit: No Cold of Flu in the past 2 weeks, No New Medical Problems, No Changes in Medication and No Patient answered all questions The patient has been examined within 24 hours of the surgical procedure. The History & Physical has been completed within 30 days and I have reviewed it.: Yes Section B - Complete if H&P > 30 days Chief Complaint: SCREENING Allergies: Allergies Allergy/AdvReac Type Severity Reaction Status Date / Time amoxicillin Allergy Unknown Verified 07/28/21 15:04 Plan I have reviewed the history and physical and performed a pertinent physical examination on my patient. No changes have occurred unless specified. Time Spent With Patient Time: Total time managing care of this patient today ____ minutes.
--- NOTE | 2025-01-15 09:59 | HO.ANESPROP2 ---
[facility] Past Medical History Medical History Colon polyps Hearing loss Knee pain Functional capacity: independent ambulation Family History Family history of problems with anesthesia: No Surgical History Surgical History H/O colonoscopy History of Problems with Anesthesia: No Social History Social History Alcohol intake: current Alcohol intake frequency: a few times a week Alcohol type: hard liquor Patient Tobacco Use Status: Former Tobacco user Tobacco use type: Cigarette Advance Directives: No Advance Directives Information Provided: Yes Current occupational status: employed Current occupation: electrician outside Narrative Narrative: marijuana this am Meds Allergies Allergy/AdvReac Type Severity Reaction Status Date / Time amoxicillin Allergy Unknown Verified 07/28/21 15:04 Active Medications: Current Medications Lactated Ringer's (Lr) 1,000 mls @ 100 mls/hr IVCONT .Q10H TOÑA Home Medications ?Medication ?Instructions ?Recorded ?Confirmed ?Last Taken ?Type cyanocobalamin (vitamin B-12) 100 100 mcg PO DAILY 12/11/24 01/13/25 Unknown History mcg tablet (Vitamin B-12) ibuprofen 200 mg tablet 200 mg PO Q8H PRN Pain 12/11/24 01/13/25 Unknown History losartan 50 mg-hydrochlorothiazide 1 tab PO DAILY 12/11/24 01/13/25 Unknown History 12.5 mg tablet cholecalciferol (vitamin D3) 50 50 mcg PO DAILY 01/13/25 01/13/25 Unknown History mcg (2,000 unit) capsule (Vitamin D3) Exam Height,Weight and Vital Signs: Height 5 ft 10.5 in Weight 90.265 kg Airway Mallampati Class: III TM Dist: >3cm Neck ROM: Full Loose/Missing/Broken Teeth: Upper and Lower (bad dentl hygiene, lot of teeth missing) Heart: RRR Lungs: CTA Assessment and Plan Final Anesthetic Review Family History of Problems with Anesthesia: No History of Problems with Anesthesia: No NPO: Yes ASA Class: II Final Preanesthetic Review: Meds/Allgs Chart Reviewed, Consent Obtained/Reviewed and Anes Risks/Benef Reviewed Patient Risk: Low Procedure Risk: Low Anesthetic Plan Anesthetic Plan: MAC: Disposition: Standard PACU
[2025-01-15] MEDS: Lactated Ringers 1,000 ML 100 ML IVCONT (10:01)
[2025-01-15 10:04] VITALS: BMI 27.2
[2025-01-15 10:05] VITALS: BP 131/83; PULSE 68; RESP 18; TEMP 36.7; O2SAT 96
[2025-01-15 10:45] VITALS: BP 116/81; PULSE 70; RESP 16; TEMP 36.1; O2SAT 97
--- NOTE | 2025-01-15 10:50 | PM.OP ---
Brief Operative Note Date of Service: 01/15/25 Pre-op diagnosis: screening Procedure: colonoscopy Surgeon: Syed Milligan MD Anesthesia: MAC Was an Electron Microscopist used for this Procedure?: No Estimated blood loss (mL): 2 Pathology: other Condition: stable
[2025-01-15 11:00] VITALS: BP 133/87; PULSE 70; RESP 16; TEMP 36.2; O2SAT 97
--- NOTE | 2025-01-15 11:20 | OP_ITS ---
DATE OF SERVICE: 01/15/2025 SURGEON: Syed Milligan MD INDICATIONS: Prior history of adenomatous colon polyps with short term followup necessary for findings of dysplasia. PREOPERATIVE DIAGNOSIS: POSTOPERATIVE DIAGNOSIS: PROCEDURE PERFORMED: Colonoscopy to the cecum. ESTIMATED BLOOD LOSS: COMPLICATIONS: ANESTHESIA: ASSISTANTS: SPECIMENS: MEDICATIONS: Monitored anesthesia care. DESCRIPTION OF PROCEDURE: The history and physical were performed. The risks and benefits of the procedure were explained to the patient. The informed consent was obtained. The patient was placed in the left lateral decubitus position. A digital rectal exam was performed and was found to be normal. The Olympus pediatric video colonoscope was introduced into the rectum and advanced to the cecum. The cecum was identified by transillumination, palpation, and identification of the ileocecal valve. Examination was performed. The scope was removed. He tolerated the procedure well and was sent to recovery area in stable condition. FINDINGS: The terminal ileum was not examined. The visualized colonic mucosa was normal. There was some liquid stool limiting the sensitivity examination for detection of small polyps. No residual polypoid tissue was identified. Retroflexed examination showed small internal hemorrhoids. IMPRESSION: Normal colonoscopy. RECOMMENDATIONS: 1. Follow up as needed. 2. Repeat colonoscopy is recommended in 3 years for close monitoring of prior history of polyps. MD BERYL Owens/SHAW / [id number]
--- NOTE | 2025-01-15 12:14 | HO.POSTANES ---
Post Anesthesia Evaluation Post Anesthesia Evaluation Date of Service: 01/15/25 Vital Signs: Vital Signs Temp Pulse Resp BP Pulse Ox O2 Del Method 01/15/25 11:00 97.1 F 70 16 133/87 97 Room Air 01/15/25 10:45 97.0 F 70 16 116/81 97 Room Air 01/15/25 10:05 98.1 F 68 18 131/83 96 Room Air Anesthesia: Monitored Mental Status: Awake Pain Control: Satisfactory Nausea/Vomiting: None Hydration: Adequate Anesthesia-Related Issues: No Anes. Related Issues
== END 2025-01-15 11:38 | disposition home or self-care (01) ==
PROVIDERS: Visit Provider Internal Medicine Gastroenterology
PROC: 0DJD8ZZ Inspection of Lower Intestinal Tract, Via Natural or Artificial Opening Endoscopic (ICD-10-PCS; CPT 45378; principal; 2025-01-15 10:40)
DX: Z12.11 Encounter for screening for malignant neoplasm of colon (principal); Z86.0101 Personal history of adenomatous and serrated colon polyps; K64.8 Other hemorrhoids; M25.569 Pain in unspecified knee; H91.90 Unspecified hearing loss, unspecified ear; Z85.46 Personal history of malignant neoplasm of prostate; Z79.1 Long term (current) use of non-steroidal anti-inflammatories (NSAID); Z79.899 Other long term (current) drug therapy; Z88.1 Allergy status to other antibiotic agents; Z87.891 Personal history of nicotine dependence
CPT/HCPCS: 45378; J2003; J2704